=== PATIENT | female | born 1975 | race Caucasian/White ===

== ENCOUNTER 2016-08-03 23:59 | Emergency (ER) | payer OTHER | END 2016-08-04 02:02 | disposition left against medical advice (07) | LOC: ER 23:59 | DX: Z53.21 Procedure and treatment not carried out due to patient leaving prior to being seen by health care provider (principal) ==

== ENCOUNTER 2016-08-04 13:38 | Emergency (ER) | payer OTHER | END 2016-08-04 15:05 | disposition home or self-care (01) | LOC: ER 13:38 | DX: S01.81XA Laceration without foreign body of other part of head, initial encounter (principal); F17.210 Nicotine dependence, cigarettes, uncomplicated; Z88.2 Allergy status to sulfonamides; Z23 Encounter for immunization; Z90.710 Acquired absence of both cervix and uterus; W01.198A Fall on same level from slipping, tripping and stumbling with subsequent striking against other object, initial encounter; Y92.009 Unspecified place in unspecified non-institutional (private) residence as the place of occurrence of the external cause | CPT/HCPCS: 90471 ==

== ENCOUNTER 2016-09-03 17:01 | Emergency (ER) | payer OTHER | END 2016-09-03 17:50 | disposition home or self-care (01) | LOC: ER 17:01 | DX: M54.42 Lumbago with sciatica, left side (principal); E66.9 Obesity, unspecified; F17.210 Nicotine dependence, cigarettes, uncomplicated; Z90.710 Acquired absence of both cervix and uterus; Z79.899 Other long term (current) drug therapy; Z88.2 Allergy status to sulfonamides; Z68.32 Body mass index [BMI] 32.0-32.9, adult | CPT/HCPCS: 96372; J1885 ==

== ENCOUNTER 2016-09-08 10:35 | Emergency (ER) | payer OTHER | END 2016-09-08 13:10 | disposition home or self-care (01) | LOC: ER 10:35 | DX: M54.32 Sciatica, left side (principal); F17.210 Nicotine dependence, cigarettes, uncomplicated; Z90.710 Acquired absence of both cervix and uterus; Z79.899 Other long term (current) drug therapy; Z88.2 Allergy status to sulfonamides | CPT/HCPCS: 96374; 96375; J1885 ==

== ENCOUNTER 2016-09-28 18:46 | Emergency (ER) | payer OTHER | END 2016-09-28 21:28 | disposition home or self-care (01) | LOC: ER 18:46 | DX: M54.42 Lumbago with sciatica, left side (principal); F17.210 Nicotine dependence, cigarettes, uncomplicated; Z88.2 Allergy status to sulfonamides | CPT/HCPCS: 96372; J2550 ==